=== PATIENT | male | born 1985 | race Caucasian/White ===

== ENCOUNTER 2020-05-28 13:32 | Emergency (ER) | payer MEDICARE, MEDICAID ==
[~2020-05-28] VITALS: Ht 182.9 cm; Wt 109.1 kg
[2020-05-28] MEDS ORDERED: DIVA-85 PO (13:38)
[2020-05-28] MEDS ORDERED: NALT50TA6 PO (13:38)
[2020-05-28] MEDS ORDERED: FLUT100B IH (13:38)
[2020-05-28] MEDS ORDERED: METO50 PO (13:38)
[2020-05-28] MEDS ORDERED: QUET200T PO (13:38)
[2020-05-28] MEDS ORDERED: HALO10 PO (13:38)
[2020-05-28] MEDS ORDERED: CLON1PAT14 TD (13:38)
[2020-05-28] MEDS ORDERED: LORazepam 1 MG TABLET PO ONE (14:15)
[2020-05-28 16:51] LABS: ANION GAP 9 mmol/L (8-16); CALCIUM, TOTAL 8.6 mg/dL (8.8-10.5); CARBON DIOXIDE 29 mmol/L (22-29); CHLORIDE 108 mmol/L (98-107); CREATININE 0.81 mg/dL (0.60-1.30); GLOMERULAR FILTR. RATE CALC > 60 mL/min (>60); GLUCOSE,RANDOM 96 mg/dL (70-110); POTASSIUM 4.1 mmol/L (3.5-5.1); SODIUM SERUM 146 mmol/L (136-145); UREA NITROGEN, BLOOD 11 mg/dL (7-18)
[2020-05-28 16:52] LABS: BASOPHILS % (AUTO) 0.4 % (0.0-2.0); EOSINOPHILS % (AUTO) 0.5 % (1.0-6.0); HEMATOCRIT 44.2 % (41-53); HEMOGLOBIN 14.8 g/dL (13.5-17.5); LYMPHOCYTES % (AUTO) 25.5 % (22.0-44.0); MEAN CORPUSCULAR HEMOGLOBIN 31.7 pg (26.0-34.0); MEAN CORPUSCULAR HGB CONC 33.4 G/dL (31.0-37.0); MEAN CORPUSCULAR VOLUME 95 fL (80-100); MONOCYTES # (AUTO) 0.9 K/uL (0.1-1.0); MONOCYTES % (AUTO) 11.6 % (2.0-9.0); NEUTROPHILS # (AUTO) 4.9 K/uL (1.8-7.7); PLATELET COUNT (AUTO) 173 K/uL (150-450); RED BLOOD CELL COUNT(AUTO) 4.67 MIL/uL (4.50-5.90); RED CELL DISTRIBUTION WIDTH 12.9 % (11.5-14.5)
[2020-05-28 16:56] VITALS: BP 157/96
== END 2020-05-28 17:37 | disposition home or self-care (01) ==
LOC: EMS 13:41
DX: F41.9 Anxiety disorder, unspecified (principal); I10 Essential (primary) hypertension; F20.9 Schizophrenia, unspecified; J45.909 Unspecified asthma, uncomplicated
CPT/HCPCS: 93005; 99285; 36415-L1; 36415-TC; 71045-TC